=== PATIENT | male | born 1985 | race Hispanic/Latino ===

== ENCOUNTER 2025-01-12 13:10 | Emergency (ER) | payer SELFPAY ==
--- OUTSIDE RECORDS SUMMARY | 2025-01-12 13:13 | XMS REPORT | Continuity of Care Document ---
Author Name Unknown Address [address] [place] [address] [facility] Address [address] [place] [address] [place] [id number] Care Team Providers Care Single Wire Saw Operator Name Role Phone Unavailable Unavailable Unavailable
[2025-01-12 13:45] LABS: Absolute Basophils 0.1 K/uL (0-0.5); Absolute Eosinophils 0.2 K/uL (0-0.5); Absolute Lymphocytes (CBC) 3.3 K/uL (0.7-4.9); Absolute Monocytes 0.8 K/uL (0.1-1.3); Absolute Neutrophil 4.9 K/uL (1.8-8.0); Eosinophils % 2.2 % (0-4.4); Hematocrit 43.7 % (39.6-49.0); Hemoglobin 14.8 g/dL (13.6-17.9); Lymphocytes % 35.6 % (15.3-44.8); MCH 27.6 pg (27.0-35.0); MCV 81.2 fL (80-100); MPV 7.9 fL (7.6-11.3); Monocytes % 8.8 % (3.3-12.3); Neutrophils % 52.4 % (41.7-73.7); Platelets 301 thou/uL (152-406); RBC Red Blood Cell Count 5.39 M/uL (4.33-5.43); Red Cell Distribution Width 14.5 % (12.1-15.2)
[2025-01-12 14:07] LABS: Anion Gap 5.4 mEq/L (5.0-15.0); Troponin High Sensitivity 3.5 pg/mL (<58.9)
[2025-01-12 14:08] LABS: Potassium 4.4 mEq/L (3.5-5.1)
--- NOTE | 2025-01-12 14:48 | RAD REPORT ---
EXAMINATION: ONE VIEW CHEST XR CLINICAL INDICATION: CHEST PAIN TECHNIQUE: Frontal chest projection is submitted. Examination is limited by patient positioning and t echnique. COMPARISON: No prior exam. FINDINGS: Mild linear opacities in left base probably mild atelectasis. The lungs are otherwise clear. The hear t is upper limit of normal in size. No displaced fractures identified.
--- NOTE | 2025-01-12 14:58 | ER ---
Nurse's Notes [facility] Name: Flavio Cavanaugh Age: 39 yrs Sex: Male : 1985 Arrival Date: 01/12/2025 Time: 13:10 Bed 14 Private MD: Diagnosis: Chest pain, unspecified Presentation: 01/12 13:21 Chief complaint: Patient states: he started having chest pain Saturday night/Saturday ap3 morning on the right side of his chest, but reports it has since improved. patient currently rates his pain as a 5/10 on the pain scale. patient denies any increased shortness of breath, or nausea at this time. Coronavirus screen: At this time, the client does not indicate any symptoms associated with coronavirus-19. Ebola Screen: No symptoms or risks identified at this time. Initial Sepsis Screen: Does the patient meet any 2 criteria? No. Patient's initial sepsis screen is negative. Does the patient have a suspected source of infection? No. Patient's initial sepsis screen is negative. Risk Assessment: Do you want to hurt yourself or someone else? Patient reports no desire to harm self or others. Onset of symptoms was January 10, 2025. 13:21 Method Of Arrival: Ambulatory ap3 13:21 Acuity: SARKIS 2 ap3 Triage Assessment: 13:23 General: Appears in no apparent distress. Behavior is calm, cooperative, appropriate ap3 for age. Pain: Complains of pain in anterior aspect of right upper chest Pain currently is 5 out of 10 on a pain scale. Neuro: Level of Consciousness is awake, alert, obeys commands, Oriented to person, place, time, situation, Appropriate for age. Cardiovascular: Reports chest pain. Respiratory: Airway is patent Respiratory effort is even, unlabored, Respiratory pattern is regular, symmetrical. Historical: - Allergies: 13:23 No Known Allergies; ap3 - Home Meds: 13:23 None [Active]; ap3 - PMHx: 13:23 Gastroesophageal reflux disease; ap3 - Immunization history:: Client reports receiving the 2nd dose of the Covid vaccine, Flu vaccine is not up to date. - Infectious Disease History:: Denies. - Social history:: Smoking status: Reported history of juuling and/or vaping. Screenin:24 [facility] Fall Risk Assessment (Adult) History of falling in the last 3 months, ap3 including since admission No falls in past 3 months (0 pts) Confusion or Disorientation No (0 pts) Intoxicated or Sedated No (0 pts) Impaired Gait No (0 pts) Mobility Assist Device Used No (0 pt) Altered Elimination No (0 pt) Score/Fall Risk Level 0 - 2 = Low Risk Oriented to surroundings, Maintained a safe environment, Educated pt \T\ family on fall prevention, incl call for assistance when getting out of bed, Assessed \T\ reinforced patient's understanding of fall precautions, Hourly rounding (assess needs \T\ fall precautionary measures) done, Used ambulatory aids as needed (educated on \T\ assisted with). Abuse screen: Denies threats or abuse. Nutritional screening: No deficits noted. Tuberculosis screening: No symptoms or risk factors identified. Assessment: 13:44 General: Appears in no apparent distress. comfortable, well groomed, well developed, kc6 Behavior is calm, cooperative, appropriate for age. Pain: Complains of pain in chest Pain does not radiate. Pain began 1 day ago. Neuro: Level of Consciousness is awake, alert, obeys commands, Oriented to person, place, time, situation, Appropriate for age. Cardiovascular: Reports chest pain, Capillary refill < 3 seconds Rhythm is regular. Respiratory: Airway is patent Trachea midline Respiratory effort is even, unlabored, Respiratory pattern is regular, symmetrical. Derm: No signs and/or symptoms reported regarding the dermatologic system. Skin is intact, is healthy with good turgor, Skin is pink, warm \T\ dry. 15:14 Reassessment: Patient appears in no apparent distress at this time. No changes from kc6 previously documented assessment. Patient and/or family updated on plan of care and expected duration. Pain level reassessed. Patient is alert, oriented x 3, equal unlabored respirations, skin warm/dry/pink. Vital Signs: 13:21 BP 130 / 79; Pulse 90; Resp 18; Temp 97.8; Pulse Ox 96% on R/A; Weight 113.4 kg; Height ap3 5 ft. 7 in. ; Pain 5/10; 14:32 BP 118 / 66; Pulse 77; Resp 18 S; Pulse Ox 98% on R/A; kc6 15:13 BP 121 / 72; Pulse 70; Resp 18 S; Pulse Ox 100% on R/A; kc6 13:21 Body Mass Index 39.16 (113.40 kg, 170.18 cm) ap3 13:21 Pain Scale: Adult ap3 ED Course: 13:13 Patient arrived in ED. mr 13:13 [facility]C [facility] kb 13:13 Alistair Kaur MD is Attending Physician. kb 13:21 EKG done, by ED staff, reviewed by Zina READ. ap3 13:23 Triage completed. ap3 13:24 Arm band placed on right wrist. ap3 13:31 Alanna Child, KO is Primary Nurse. kc6 13:44 Initial lab(s) drawn, by nd, sent to lab. Inserted saline lock: 20 gauge in right bc6 antecubital area, using aseptic technique. Blood collected. Flushed with 10 mL NS. 13:44 Basic Metabolic Panel Sent. bc6 13:44 CBC with Diff Sent. bc6 13:44 Troponin HS Sent. bc6 14:24 XRAY Chest (1 view) In Process Unspecified. EDMS 14:33 Patient has correct armband on for positive identification. Placed in gown. Bed in low kc6 position. Call light in reach. Side rails up X 1. Adult w/ patient. nurse monitoring on. Pulse ox on. NIBP on. Door closed. Noise minimized. Lights dimmed. Pillow given. Verbal reassurance given. 15:14 No provider procedures requiring assistance completed. IV discontinued, intact, kc6 bleeding controlled, No redness/swelling at site. Pressure dressing applied. Patient maintains SpO2 saturation greater than 95% on room air. Administered Medications: No medications were administered Medication: 15:15 VIS not applicable for this client. kc6 Outcome: 14:57 Discharge ordered by . kb 15:14 Discharged to home ambulatory, with significant other, kc6 15:14 Condition: improved 15:14 Discharge instructions given to patient, significant other, Instructed on discharge instructions, follow up and referral plans. Demonstrated understanding of instructions, follow-up care, 15:15 Patient left the ED. kc6 Signatures: Dispatcher [employer] EDMS Zina Orr FNP-C DIRECTOR MEDICAL AFFAIRS-Ckb NevilleIndira, Reg Reg mr Joana Christianson, RN RN ap3 Alanna Child, RN RN kc6 Laury Gonzalez bc6 Corrections: (The following items were deleted from the chart) 13:23 PMHx: Gastric reflux; ap3 ap3
--- NOTE | 2025-01-12 14:58 | EDPHYS ---
[facility] Documentation [facility] Name: Flavio Cavanaugh Age: 39 yrs Sex: Male : 1985 Arrival Date: 01/12/2025 Time: 13:10 Bed 14 Private MD: ED Physician Alistair Kaur HPI: 01/12 13:16 This 39 yrs old Male presents to ER via Unassigned with complaints of Chest kb Pain. 13:16 PT is a 39 year old male who presents for right sided chest pain that started yesterday kb morning. States it felt like the top of his lung was bruised when he took a deep breath. States the pain is better today. Employer recommended he come in for evaluation. Denies shortness of breath, palpitations. . Historical: - Allergies: 13:23 No Known Allergies; ap3 - Home Meds: 13:23 None [Active]; ap3 - PMHx: 13:23 Gastroesophageal reflux disease; ap3 - Immunization history:: Client reports receiving the 2nd dose of the Covid vaccine, Flu vaccine is not up to date. - Infectious Disease History:: Denies. - Social history:: Smoking status: Reported history of juuling and/or vaping. ROS: 13:16 Constitutional: As per HPI kb Exam: 13:16 Constitutional: This is a well developed, well nourished patient who is awake, alert, kb and in no acute distress. Head/Face: Normocephalic, atraumatic. ENT: Moist Mucous membranes Chest/axilla: Normal chest wall appearance and motion. Cardiovascular: Regular rate Respiratory: Respirations even and unlabored. No increased work of breathing. Talking in full sentences Skin: Warm, dry with normal turgor. Normal color. MS/ Extremity: Pulses equal, no cyanosis. Neurovascular intact. Full, normal range of motion. Neuro: Awake and alert, GCS 15, oriented to person, place, time, and situation. 13:22 ECG was reviewed by the Attending Physician. kb Vital Signs: 13:21 BP 130 / 79; Pulse 90; Resp 18; Temp 97.8; Pulse Ox 96% on R/A; Weight 113.4 kg; Height ap3 5 ft. 7 in. ; Pain 5/10; 14:32 BP 118 / 66; Pulse 77; Resp 18 S; Pulse Ox 98% on R/A; kc6 15:13 BP 121 / 72; Pulse 70; Resp 18 S; Pulse Ox 100% on R/A; kc6 13:21 Body Mass Index 39.16 (113.40 kg, 170.18 cm) ap3 13:21 Pain Scale: Adult ap3 MDM: 13:13 Medical Screening Exam initiated kb 14:56 Data reviewed: vital signs, nurses notes. kb 14:57 Differential diagnosis: pneumonia, pleurisy, arrhythmia, acute mi. Counseling: I had a kb detailed discussion with the patient and/or guardian regarding the historical points, exam findings, and any diagnostic results supporting the discharge/admit diagnosis, lab results, radiology results, the need for outpatient follow up, a family practitioner, to return to the emergency department if symptoms worsen or persist or if there are any questions or concerns that arise at home. 14:58 Test considered but Not performed: CT: ct considered but PECARN negative. Scoring Tools kb HEART Score: Total Score = 0 PERC Rule for PE Age >/= 50 No HR >/= 100 No O2 Sat Room Air < 95% No Unilateral leg swelling No Hemoptysis No Recent surgery or trauma </= 4 wks ago requiring treatment with general anesthesia No (0 pt) Prior PE or DVT No Hormone use (Oral contraceptives, hormone replacement or estrogenic hormones use in males or female patients No. 01/12 13:19 Order name: Basic Metabolic Panel; Complete Time: 14:08 kb 01/12 13:19 Order name: CBC with Diff; Complete Time: 13:52 kb 01/12 13:19 Order name: Troponin HS; Complete Time: 14:09 kb 01/12 13:19 Order name: XRAY Chest (1 view); Complete Time: 14:48 kb 01/12 13:19 Order name: Cardiac monitoring; Complete Time: 13:33 kb 01/12 13:19 Order name: EKG - Nurse/Tech; Complete Time: 13:24 kb 01/12 13:19 Order name: IV Saline Lock; Complete Time: 13:33 kb 01/12 13:19 Order name: Labs collected and sent; Complete Time: 13:33 kb 01/12 13:19 Order name: O2 Per Protocol; Complete Time: 13:33 kb 01/12 13:19 Order name: O2 Sat Monitoring; Complete Time: 13:33 kb EC:22 Rate is 82 beats/min. Rhythm is regular. QRS [place] is Normal. [place] interval is normal at kb 118 msec. QRS interval is normal at 84 msec. QT interval is normal at 397 msec. Administered Medications: No medications were administered Disposition: 19:58 Co-signature as Attending Physician, Alistair Kaur MD I reviewed the patient's care jj9 provided by the Advanced Practice Provider and agree with the diagnosis and treatment plan. Disposition Summary: 01/12/25 14:57 Discharge Ordered Notes: Location: Home kb Condition: Stable kb Diagnosis - Chest pain, unspecified kb Followup: kb - With: Emergency Department - When: As needed - Reason: Worsening of condition Followup: kb - With: Private Physician - When: 2 - 3 days - Reason: Recheck today's complaints, Continuance of care, Re-evaluation by your physician Discharge Instructions: - Discharge Summary Sheet kb - Nonspecific Chest Pain, Adult, [id number] kb Forms: - Work release form kb - Medication Reconciliation Form kb - Antibiotic Education kb - Prescription Opioid Use kb - Patient Portal Instructions kb - Leadership Thank You Letter kb Signatures: Dispatcher [employer] EDMS Zina Orr, TAX CREDIT LEASING CONSULTANT-C TAX CREDIT LEASING CONSULTANT-Joana Busch RN RN ap3 Alistair Kaur MD MD [email or web address] Corrections: (The following items were deleted from the chart) 13:20 13:20 BASIC METABOLIC PANEL+C.LAB.BRZ ordered. EDMS EDMS 13:20 13:20 CBC+H.LAB.BRZ ordered. EDMS EDMS 13:20 13:20 Troponin High Sensitivity+C.LAB.BRZ ordered. EDMS EDMS 13:20 13:20 Chest Single View+RAD.RAD.BRZ ordered. EDMS EDMS 13:23 13:23 PMHx: Gastric reflux; ap3 ap3
[2025-01-12 15:35] VITALS: TEMP 97.8
[2025-01-12 15:46] VITALS: BP 121/72; O2SAT 100
--- NOTE | 2025-01-15 14:52 | EKG ---
Test Date: 2025-01-12 Test Time: 13:20:53 [employer]er: JOHANNA MEASUREMENT RESULTS: Intervals: Rate: 82 OR: 118 QRSD: 84 QT: 340 QTc: 397 [place]: P: 13 OR: 118 QRS: 62 T: 31 INTERPRETIVE STATEMENTS: Normal sinus rhythm Normal ECG No previous ECG available for comparison Electronically Signed On 01-15-25 14:43:58 CDT by Amos Vasquez
== END 2025-01-12 15:15 | disposition home or self-care (01) ==
LOC: ER 13:10
DX: R07.9 Chest pain, unspecified (principal)
CPT/HCPCS: 36415; 71045; 80048; 84484; 85025; 93005; 99284